=== PATIENT | male | born 1990 | race Caucasian/White ===

== ENCOUNTER 2016-10-04 20:09 | Emergency (ER) | payer BC ==
[~2016-10-04] VITALS: Ht 185.4 cm; Wt 84.1 kg
[2016-10-04 20:22] VITALS: TEMP 97.9
[2016-10-04 21:15] LABS: ANION GAP 12 mmol/L (7-16); BLOOD UREA NITROGEN 13 mg/dL (9-20); CALCIUM 9.3 mg/dL (8.4-10.2); CARBON DIOXIDE 27 mmol/L (22-30); CHLORIDE 101 mmol/L (98-107); CREATININE, serum 0.96 mg/dL (0.66-1.25); GLUCOSE 84 mg/dL (74-106); POTASSIUM 3.9 mmol/L (3.4-5.0); SODIUM 140 mmol/L (137-145)
[2016-10-04 21:16] VITALS: BP 119/69
[2016-10-04 21:31] LABS: TROPONIN-I < 0.012 ng/mL (0.000-0.034)
[2016-10-04 22:16] VITALS: PULSE 68
== END 2016-10-04 22:17 | disposition home or self-care (01) ==
LOC: COL.ER 20:09
PROVIDERS: Emergency Medicine
DX: R07.9 Chest pain, unspecified (principal)